=== PATIENT | male | born 1955 | race Caucasian/White ===

== ENCOUNTER 2017-12-24 22:21 | Inpatient (IN) | payer OTHER ==
--- NOTE | 2017-12-24 23:11 | PDOC ---
History of Present Illness - General Chief Complaint: Pain Stated Complaint: ABD PAIN Time Seen by Provider: 12/24/17 22:52 - History of Present Illness Initial Comments: 12/24/17 23:27 62 yo M with no significant pmh with abdominal pain. Patient reports acute onset of sharp, periumbilical, spasmodic pain beginning at 0300 PM this evening. Pain aggravated with touch. Also reports one episode of "explosive" BM at 0200 PM following ingestion of hamburger. Did not assess for BPR. One episode of bilious, non bloody emesis this evening. No identifiable trigger or alleviators.States that he has been unable to urinate beginning 200PM, desire 48 oz + fluid intake. Denies back pain or trauma, or perianal parasthesia. Denies F/C, CP, SOB, dysuria, hematuria, flank pain, testicular pain, lightheadedness, weakness, sensory changes. Denies h/o BPH. Recently started on Metformin x 1 month. Past History - Past Medical History Allergies/Adverse Reactions: Allergies Allergy/AdvReac Type Severity Reaction Status Date / Time Penicillins Allergy Itching Verified 12/25/17 04:35 Home Medications: Ambulatory Orders Omeprazole 20 mg PO DAILY 10/04/15 Losartan Potassium 25 mg PO DAILY 12/25/17 Metformin HCl 500 mg PO DAILY 12/25/17 Rosuvastatin [Crestor -] 5 mg PO DAILY 12/25/17 COPD: No Diabetes: Yes GI Disorders: Yes (GERD) HTN: Yes Hypercholesterolemia: Yes - Surgical History Abdominal Surgery: No Appendectomy: No Cardiac Surgery: No Cholecystectomy: No Lung Surgery: No Neurologic Surgery: No Orthopedic Surgery: No - Suicide/Smoking/Psychosocial Hx Smoking History: Never smoked Have you smoked in the past 12 months: No Information on smoking cessation initiated: No Hx Alcohol Use: No Drug/Substance Use Hx: No Substance Use Type: None Hx Substance Use Treatment: No Review of Systems - Review of Systems Comments:: 12/24/17 23:11 GENERAL/CONSTITUTIONAL: No fever or chills. No weakness. HEAD, EYES, EARS, NOSE AND THROAT: No change in vision. No ear pain or discharge. No sore throat. CARDIOVASCULAR: No chest pain or shortness of breath RESPIRATORY: No cough, wheezing, or hemoptysis. GASTROINTESTINAL: + Abdominal pain. No nausea, vomiting, diarrhea or constipation. GENITOURINARY: No dysuria, frequency, or change in urination. MUSCULOSKELETAL: No joint or muscle swelling or pain. No neck or back pain. SKIN: No rash NEUROLOGIC: No headache, vertigo, loss of consciousness, or change in strength/ sensation. ENDOCRINE: No increased thirst. No abnormal weight change HEMATOLOGIC/LYMPHATIC: No anemia, easy bleeding, or history of blood clots. ALLERGIC/IMMUNOLOGIC: No hives or skin allergy. *Physical Exam - Vital Signs Last Vital Signs Temp Pulse Resp BP Pulse Ox 97.8 F 85 20 170/82 98 12/24/17 22:36 12/24/17 22:36 12/24/17 22:36 12/24/17 22:36 12/24/17 22:36 - Physical Exam Comments: 12/24/17 23:11 GENERAL: Awake, alert, and fully oriented, in no acute distress HEAD: No signs of trauma, normocephalic, atraumatic EYES: PERRLA, EOMI, sclera anicteric, conjunctiva clear ENT:Dry mucous membranes. Hearing grossly normal, nares patent, oropharynx clear without exudates. NECK: Normal ROM, supple, no lymphadenopathy, JVD, or masses LUNGS: No distress, speaks full sentences, clear to auscultation bilaterally HEART: Regular rate and rhythm, normal S1 and S2, no murmurs, rubs or gallops, peripheral pulses normal and equal bilaterally. ABDOMEN: Soft, periumbiclical, suprapubic ttp. NDS, normoactive bowel sounds. No guarding, no rebound. No masses. Neg CVA ttp. EXTREMITIES : Normal inspection, Normal range of motion, no edema. No clubbing or cyanosis. NEUROLOGICAL: Cranial nerves II through XII grossly intact. Normal speech, normal gait, no focal sensorimotor deficits. SKIN: Warm, Dry, normal turgor, no rashes or lesions noted ED Treatment Course - LABORATORY CBC & Chemistry Diagram: 12/24/17 23:40 12/24/17 23:40 Medical Decision Making - Medical Decision Making 12/24/17 23:36 62 yo M with no significant pmh with acute onset of sharp, periumbilical, spasmodic pain beginning at 0300 PM this evening w/ episode of "explosive" BM and bilious, non bloody emesis following ingestion of hamburger. Did not assess for BPR. Reports urinary retention beginning 200PM. Denies F/C, CP, SOB, dysuria, hematuria, flank pain,back pain or trauma, or perianal parasthesia, testicular pain, lightheadedness, weakness, sensory changes. Denies h/o BPH. Physical exam with suprapubic ttp, and clinical signs of dehydration. Will fluid hydrate and assess for cystitis, and urinary obstruction. No evidence of cauda equina. Will also consider acute viral gastroenteritis vs. appendicicis. POC glu to r/o HHS. ED Course: 12/24/17 23:40 CBC, CMP, Lipase, UA NS 12/24/17 23:46 12/24/17 23:51 WBC: 12.2 12/25/17 00:47 CMP: Unremarkable Glu: 128 12/25/17 03:25 CT AP: per imaging combination saw operator Pt. with appendicitis 12/25/17 04:19 Levaquin 750 mg, Flagyl [address] Albright consulted and received signout on pt. Surgery tomorrow. 12/25/17 05:[address] Padilla. *DC/Admit/Observation/Transfer Diagnosis at time of Disposition: Appendicitis Qualifiers: Appendicitis type: acute appendicitis Acute appendicitis type: unspecified acute appendicitis type Qualified Code(s): K35.80 - Unspecified acute appendicitis - Discharge Dispostion Admit: Yes - Referrals Referrals: Maira De Leon MD [Primary Care Provider] - - Patient Instructions Additional Instructions: Please return to the emergency department with any new or worsening symptoms or concerns. Please follow up with your primary care physician within 72 hours. - Post Discharge Activity - Attestations Physician Attestion: 12/24/17 23:11 I attest to the information provided in this note.
[2017-12-24] MEDS ORDERED: SODIUM CHLORIDE 1,000 ML IV STA (23:27)
[2017-12-24 23:46] LABS: BASO % 0.6 % (0-2.0); EOS % 0.2 % (0-4.5); HEMATOCRIT 44.7 % (35.4-49); HEMOGLOBIN 15.4 GM/dL (11.7-16.9); LYMPH % 7.9 % (8-40); MCH 30.6 pg (25.7-33.7); MCHC 34.5 g/dl (32.0-35.9); MEAN CELL VOLUME 88.7 fl (80-96); MEAN PLT VOLUME 9.3 fl (7.5-11.1); NEUT % 85.3 % (42.8-82.8); PLATELET COUNT 221 K/MM3 (134-434); RBC 5.04 M/mm3 (4.00-5.60); RDW 13.7 % (11.9-15.9); WHITE BLOOD COUNT 12.2 K/mm3 (4.0-10.0)
--- NOTE | 2017-12-24 23:56 | PDOC ---
Attending Attestation - Resident Resident Name: Ayan Lai - ED Attending Attestation I have performed the following: I have examined & evaluated the patient, The case was reviewed & discussed with the resident, I agree w/resident's findings & plan, Exceptions are as noted
[2017-12-25] MEDS ORDERED: SODIUM CHLORIDE 1,000 ML IV STA (00:32)
[2017-12-25 00:35] LABS: ANION GAP 10 (8-16); BILIRUBIN,TOTAL 0.3 mg/dL (0.2-1.0); BLOOD UREA NITROGEN 16 mg/dL (7-18); CHLORIDE 107 mmol/L (98-107); CO2 25 mmol/L (21-32); CREATININE 1.1 mg/dL (0.7-1.3); GLUCOSE,RANDOM 128 mg/dL (74-106); POTASSIUM 4.4 mmol/L (3.5-5.1); SGOT/AST 22 U/L (15-37); SGPT/ALT 43 U/L (12-78); SODIUM 142 mmol/L (136-145); TOT PROT 7.3 g/dl (6.4-8.2)
[2017-12-25 00:36] LABS: ALK PHOS 84 U/L (45-117)
[2017-12-25] MEDS ORDERED: ACETAMINOPHEN 1000 MG/100 ML VIAL (NON FORMULARY) IVPB ONE ×3 (00:53→13:35)
[2017-12-25] MEDS ORDERED: ACETAMINOPHEN INJECTION 100 ML IVPB ONE (00:58)
[2017-12-25 04:06] LABS: URINE APPEARANCE CLEAR; URINE BILIRUBIN NEGATIVE (<2.0 mg/dL); URINE BLOOD NEGATIVE (NEGATIVE); URINE COLOR LTYELLOW; URINE GLUCOSE (UA) NEGATIVE (NEGATIVE); URINE KETONE NEGATIVE (NEGATIVE); URINE LEUK ESTERASE NEGATIVE (NEGATIVE); URINE NITRITE NEGATIVE (NEGATIVE); URINE PROTEIN NEGATIVE (NEGATIVE); URINE UROBILINOGEN NEGATIVE mg/dL (0.2-1.0)
[2017-12-25 05:19] LABS: INR 1.11 (0.82-1.09); PROTHROMBIN TIME (PATIENT) 12.5 SEC (9.98-11.88)
--- NOTE | 2017-12-25 07:12 | HP ---
CHIEF COMPLAINT: PCP: HISTORY OF PRESENT ILLNESS: 62M pmh HTN HLD DM2 p/w acute onset lower badominal pain started yesterday after lunch (ate hamburger), followed by explisve diarrhea episode. later in the day intermittent nausea and vomiting. no chest pain feveres, SOB. never had this before ER course was notable for: (1)abx, IVF (2) (3) PAST SURGICAL HISTORY: none Social History: Smoking:no Alcohol:no Drugs: no Family History:n/c Allergies Penicillins Allergy (Verified 12/25/17 04:35) Itching HOME MEDICATIONS: Home Medications Medication Instructions Recorded Omeprazole 20 mg PO DAILY 10/04/15 Losartan Potassium 25 mg PO DAILY 12/25/17 Metformin HCl 500 mg PO DAILY 12/25/17 Rosuvastatin [Crestor -] 5 mg PO DAILY 12/25/17 REVIEW OF SYSTEMS CONSTITUTIONAL: Absent: fever, chills, diaphoresis, generalized weakness, malaise, loss of appetite, weight change HEENT: Absent: rhinorrhea, nasal congestion, throat pain, throat swelling, difficulty swallowing, mouth swelling, ear pain, eye pain, visual changes CARDIOVASCULAR: Absent: chest pain, syncope, palpitations, irregular heart rate, lightheadedness , peripheral edema RESPIRATORY: Absent: cough, shortness of breath, dyspnea with exertion, orthopnea, wheezing, stridor, hemoptysis GASTROINTESTINAL: Absent: abdominal pain, abdominal distension, nausea, vomiting, diarrhea, constipation, melena, hematochezia GENITOURINARY: Absent: dysuria, frequency, urgency, hesitancy, hematuria, flank pain, genital pain MUSCULOSKELETAL: Absent: myalgia, arthralgia, joint swelling, back pain, neck pain SKIN: Absent: rash, itching, pallor HEMATOLOGIC/IMMUNOLOGIC: Absent: easy bleeding, easy bruising, lymphadenopathy, frequent infections ENDOCRINE: Absent: unexplained weight gain, unexplained weight loss, heat intolerance, cold intolerance NEUROLOGIC: Absent: headache, focal weakness or paresthesias, dizziness, unsteady gait, seizure, mental status changes, bladder or bowel incontinence PSYCHIATRIC: Absent: anxiety, depression, suicidal or homicidal ideation, hallucinations. PHYSICAL EXAMINATION Vital Signs - 24 hr 12/24/17 12/25/17 22:36 05:20 Temperature 97.8 F 97.8 F Pulse Rate 85 Pulse Rate [ 86 Right] Respiratory 20 18 Rate Blood Pressure 170/82 Blood Pressure 124/60 [Left Arm] O2 Sat by Pulse 98 95 Oximetry (%) GENERAL: Awake, alert, and fully oriented, in no acute distress. HEAD: Normal with no signs of trauma. EYES: Pupils equal, round and reactive to light, extraocular movements intact, sclera anicteric, conjunctiva clear. No lid lag. EARS, NOSE, THROAT: Ears normal, nares patent, oropharynx clear without exudates. Moist mucous membranes. NECK: Normal range of motion, supple without lymphadenopathy, JVD, or masses. LUNGS: Breath sounds equal, clear to auscultation bilaterally. No wheezes, and no crackles. No accessory muscle use. HEART: Regular rate and rhythm, normal S1 and S2 without murmur, rub or gallop. ABDOMEN: Soft, mild tenderness in suprapubic area MUSCULOSKELETAL: Normal range of motion at all joints. No bony deformities or tenderness. No CVA tenderness. UPPER EXTREMITIES: 2+ pulses, warm, well-perfused. No cyanosis. No clubbing. No peripheral edema. LOWER EXTREMITIES: 2+ pulses, warm, well-perfused. No calf tenderness. No peripheral edema. NEUROLOGICAL: Cranial nerves II-XII intact. Normal speech. Normal gait. PSYCHIATRIC: Cooperative. Good eye contact. Appropriate mood and affect. SKIN: Warm, dry, normal turgor, no rashes or lesions noted, normal capillary refill. Laboratory Results - last 24 hr 12/24/17 12/24/17 12/25/17 23:40 23:40 00:00 WBC 12.2 H RBC 5.04 Hgb 15.4 Hct 44.7 MCV 88.7 MCH 30.6 MCHC 34.5 RDW 13.7 Plt Count 221 MPV 9.3 Neutrophils % 85.3 H Lymphocytes % 7.9 L Monocytes % 6.0 Eosinophils % 0.2 Basophils % 0.6 PT with INR INR Sodium 142 Potassium 4.4 Chloride 107 Carbon Dioxide 25 Anion Gap 10 BUN 16 Creatinine 1.1 Creat Clearance w eGFR > 60 Random Glucose 128 H Calcium 9.0 Total Bilirubin 0.3 AST 22 ALT 43 Alkaline Phosphatase 84 Total Protein 7.3 Albumin 4.0 Lipase 48 L Urine Color Urine Appearance Urine pH Ur Specific [place] Urine Protein Urine Glucose (UA) Urine Ketones Urine Blood Urine Nitrite Urine Bilirubin Urine Urobilinogen Ur Leukocyte Esterase Blood Type Antibody Screen 12/25/17 12/25/17 12/25/17 02:50 04:50 04:50 WBC RBC Hgb Hct MCV MCH MCHC RDW Plt Count MPV Neutrophils % Lymphocytes % Monocytes % Eosinophils % Basophils % PT with INR 12.50 H INR 1.11 Sodium Potassium Chloride Carbon Dioxide Anion Gap BUN Creatinine Creat Clearance w eGFR Random Glucose Calcium Total Bilirubin AST ALT Alkaline Phosphatase Total Protein Albumin Lipase Urine Color Ltyellow Urine Appearance Clear Urine pH 5.0 Ur Specific [place] 1.044 H Urine Protein Negative Urine Glucose (UA) Negative Urine Ketones Negative Urine Blood Negative Urine Nitrite Negative Urine Bilirubin Negative Urine Urobilinogen Negative Ur Leukocyte Esterase Negative Blood Type O POSITIVE Antibody Screen Negative ASSESSMENT/PLAN: 62M with acute appendicitis found on CT imaging Surgery to eval in AM NPO IVF IV abx flagyl levaquin given at 4AM, if patient goes for surgery and nonperforated may not need further abx Visit type - Emergency Visit Emergency Visit: Yes ED Registration Date: 12/25/17 Care time: The patient presented to the Emergency Department on the above date and was hospitalized for further evaluation of their emergent condition. - New Patient This patient is new to me today: Yes Date on this admission: 12/25/17 - Critical Care Critical Care patient: No Hospitalist Screening - Colonoscopy Questionnaire Colonoscopy Questionnaire: Colonoscopy Questionnaire - Patient: 50 - 75 years old and never had a screening colonoscopy: Yes History of colon or rectal polyps, or CA: No History of IBD, Crohn's disease or UC: No History of abdominal radiation therapy as a child: No - Relative: 1 with colon or rectal CA, or polyps at age 60 or younger: Unknown Colon or rectal CA diagnosed at age 45 or younger: Unknown Multiple relatives with colon or rectal CA: Unknown - Outcome: Screening Result: Positive Screen
[2017-12-25] MEDS: SODIUM CHLORIDE 1,000 ML IV SCH ×2 (07:55→11:18)
[2017-12-25 09:20] VITALS: BMI 33.0
[2017-12-25] MEDS ORDERED: BUPIVACAINE HCL/PF 0.5% (5MG/ML) 10 ML VIAL ONE (11:07)
[2017-12-25] MEDS ORDERED: BENZOIN/ALOE VERA/STORAX/TOLU 58 ML BOTTLE ONE (11:07)
[2017-12-25] MEDS ORDERED: LIDOCAINE HCL/PF 2% SDV 5ML VIAL ONE (12:07)
[2017-12-25] MEDS ORDERED: PROPOFOL 20 ML ONE ×2 (12:08)
[2017-12-25] MEDS ORDERED: ROCURONIUM BROMIDE 50 MG/5 ML VIAL ONE (12:08)
[2017-12-25] MEDS ORDERED: SUCCINYLCHOLINE CHLORIDE 200 MG/10 ML VIAL ONE (12:08)
[2017-12-25] MEDS ORDERED: fentaNYL CITRATE 250 MCG/5 ML VIAL ONE (12:12)
[2017-12-25] MEDS ORDERED: KETOROLAC TROMETHAMINE 30 MG/1 ML VIAL ONE (12:38)
[2017-12-25] MEDS ORDERED: DEXAMETHASONE SOD PHOSPHATE 4 MG/1 ML VIAL ONE (12:38)
[2017-12-25] MEDS ORDERED: NEOSTIGMINE METHYLSULFATE 0.5 MG/ML - 10 ML MDV ONE (12:58)
[2017-12-25] MEDS ORDERED: GLYCOPYRROLATE 0.2 MG/1 ML VIAL ONE ×2 (12:58)
[2017-12-25] MEDS ORDERED: BUPIVACAINE HCL/PF 0.5% (5MG/ML) 10 ML VIAL IJ ONE ×2 (13:03)
[2017-12-25] MEDS ORDERED: PROMETHAZINE HCL 25 MG/1 ML VIAL IVPUSH PRN (13:15)
[2017-12-25] MEDS ORDERED: oxyCODONE HCL 5 MG TABLET PO PRN (13:15)
[2017-12-25] MEDS ORDERED: ONDANSETRON 4 MG/2 ML VIAL IVPUSH PRN (13:15)
[2017-12-25] MEDS ORDERED: IBUPROFEN 600 MG TABLET (FP) PO PRN ×2 (13:28→13:35)
[2017-12-25] MEDS ORDERED: ACETAMINOPHEN 325 MG TABLET (FP) PO PRN ×2 (13:29→13:35)
[2017-12-25] MEDS ORDERED: D5-1/2NS+20 MEQ KCL - 20 MEQ/1,000 ML INFUS.BAG IV SCH ×2 (13:30→13:35)
[2017-12-25] MEDS ORDERED: ONDANSETRON 4 MG/2 ML VIAL IVPB PRN ×2 (13:31→13:35)
--- NOTE | 2017-12-25 13:39 | CONSULT ---
Consult Consult Specialty:: general surgery Referred by:: boom cortez Reason for Consultation:: abdominal pain - History of Present Illness Chief Complaint: abdominal pain History of Present Illness: 62 yo male PMH HTN HLD DM type 2 presented with acute onset lower abdominal pain started yesterday after lunch (ate hamburger), followed by explosive diarrhea episode. later in the day intermittent nausea and vomiting. no chest pain feveres, SOB. never had this before. We were asked to assess after CT scan returned. - History Source History Provided By: Patient, Medical Record Limitations to Obtaining History: No Limitations - Past Medical History Cardio/Vascular: Yes: HTN Hepatobiliary: Yes: Cholelithiasis Endocrine: Yes: Diabetes Mellitus - Past Surgical History Past Surgical History: Yes: None - Alcohol/Substance Use Hx Alcohol Use: No - Smoking History Smoking history: Never smoked Have you smoked in the past 12 months: No Home Medications - Allergies Allergies/Adverse Reactions: Allergies Allergy/AdvReac Type Severity Reaction Status Date / Time Penicillins Allergy Itching Verified 12/25/17 04:35 - Home Medications Home Medications: Ambulatory Orders Omeprazole 20 mg PO DAILY 10/04/15 Aspirin [ASA -] 81 mg PO Q2D 12/25/17 Losartan Potassium 50 mg PO DAILY 12/25/17 Metformin HCl 500 mg PO DAILY 12/25/17 Rosuvastatin [Crestor -] 20 mg PO DAILY 12/25/17 Review of Systems - Review of Systems Constitutional: denies: Chills, Fever Eyes: denies: Blurred Vision, Recent Change in Vision HENT: denies: Difficult Swallowing, Throat Pain Cardiovascular: denies: Chest Pain, Palpitations Respiratory: denies: Cough Gastrointestinal: reports: Abdominal Pain. denies: Constipation, Diarrhea Genitourinary: denies: Discharge, Dysuria Musculoskeletal: denies: Muscle Pain, Muscle Cramps, Muscle Weakness Integumentary: denies: Eczema, Erythema Neurological: denies: Confusion, Dizziness Endocrine: denies: Unexplained Weight Gain, Unexplained Weight Loss Hematology/Lymphatic: denies: Easily Bruised, Excessive Bleeding Psychiatric: denies: Anxiety, Depression Physical Exam Vital Signs: Vital Signs Temperature 98.1 F 12/25/17 07:52 Pulse Rate 74 12/25/17 07:52 Respiratory Rate 18 12/25/17 07:52 Blood Pressure 130/78 12/25/17 07:52 O2 Sat by Pulse Oximetry (%) 98 12/25/17 07:52 Vital Signs Period Temp Pulse Resp BP Sys/Carlos Pulse Ox Last 24 Hr 97.8 F-98.1 F 74-86 18-20 124-170/60-82 95-98 Constitutional: Yes: No Distress, Calm, Obese Eyes: Yes: Conjunctiva Clear, EOM Intact HENT: Yes: Atraumatic, Normocephalic Neck: Yes: Supple, Trachea Midline Cardiovascular: Yes: Regular Rate and Rhythm, S1, S2. No: Murmur Respiratory: Yes: Regular, CTA Bilaterally Gastrointestinal: Yes: Normal Bowel Sounds, Soft, Abdomen, Obese, Distention, Tenderness (lower quadrant B/L R>>L) ...Rectal Exam: Yes: Deferred Renal/: Yes: CVA Tenderness - Left, CVA Tenderness - Right Musculoskeletal: No: Muscle Pain, Muscle Weakness Extremities: No: Cool, Cyanosis Neurological: Yes: Alert, Oriented Psychiatric: Yes: Alert, Oriented Labs: CBC, BMP 12/24/17 23:40 12/24/17 23:40 Imaging - Results Cat Scan: Report Reviewed, Image Reviewed (1.6cm appendix with periappendiceal inflammatory changes) Problem List - Problems (1) Appendicitis Assessment/Plan: 62yo male MMP with 1 day of RLQ abdominal pain, WBC 12.[address] scan with acute supperative appendicitis NPO and IVF hydration empiric IV antibiotics OR of appendectomy - Discussed with patient risks, benefits and alternatives of laparoscopic possible open appendectomy, including but not limited to bleeding, infection, injury to adjacent structures, leak or injury, intraabdominal abscess , need for further procedures, ; alternatives include antibiotics, delayed or no surgery - risks of this include failure of nonoperative therapy, perforation, sepsis, recurrence, . Patient desires to proceed with operation - will take to OR for above. Informed consent signed for same. Code(s): K37 - UNSPECIFIED APPENDICITIS Qualifiers: Appendicitis type: acute appendicitis Acute appendicitis type: with localized peritonitis Qualified Code(s): K35.3 - Acute appendicitis with localized peritonitis (2) Diabetes Code(s): E11.9 - TYPE 2 DIABETES MELLITUS WITHOUT COMPLICATIONS Qualifiers: Diabetes mellitus type: type 2 Diabetes mellitus complication status: without complication (3) HTN (hypertension) Code(s): I10 - ESSENTIAL (PRIMARY) HYPERTENSION Qualifiers: Hypertension type: essential hypertension Qualified Code(s): I10 - Essential (primary) hypertension (4) Obesity (BMI 30.0-34.9) Code(s): E66.9 - OBESITY, UNSPECIFIED (5) HLD (hyperlipidemia) Code(s): E78.5 - HYPERLIPIDEMIA, UNSPECIFIED Qualifiers: Hyperlipidemia type: pure hypercholesterolemia Qualified Code(s): E78.00 - Pure hypercholesterolemia, unspecified; E78.0 - Pure hypercholesterolemia
--- NOTE | 2017-12-25 13:54 | CON.ID ---
Consult Consult Specialty:: infectious diseases Reason for Consultation:: appendicitis - History of Present Illness Chief Complaint: abd pain History of Present Illness: 62 yo male PMH HTN HLD DM type 2 presented with acute onset lower abdominal pain started yesterday after lunch (ate hamburger), followed by explosive diarrhea episode. later in the day intermittent nausea and vomiting. no chest pain fevers, SOB. never had this before. patient was worked up and found to have ac appendicitis. patient was seen by surgery and taken to the operating room patient currently in pacu post with his who works in this hospital doing well patient is allergic to pcn - History Source History Provided By: Patient, Family Member Limitations to Obtaining History: Clinical Condition - Past Medical History Cardio/Vascular: Yes: HTN Hepatobiliary: Yes: Cholelithiasis Endocrine: Yes: Diabetes Mellitus - Past Surgical History Past Surgical History: Yes: None - Alcohol/Substance Use Hx Alcohol Use: No - Smoking History Smoking history: Never smoked Have you smoked in the past 12 months: No Home Medications - Allergies Allergies/Adverse Reactions: Allergies Allergy/AdvReac Type Severity Reaction Status Date / Time Penicillins Allergy Itching Verified 12/25/17 04:35 - Home Medications Home Medications: Ambulatory Orders Omeprazole 20 mg PO DAILY 10/04/15 Aspirin [ASA -] 81 mg PO Q2D 12/25/17 Losartan Potassium 50 mg PO DAILY 12/25/17 Metformin HCl 500 mg PO DAILY 12/25/17 Rosuvastatin [Crestor -] 20 mg PO DAILY 12/25/17 Ibuprofen [Motrin -] 600 mg PO Q6H PRN tablet 12/26/17 Ibuprofen [Motrin -] 600 mg PO Q6H PRN tablet 12/26/17 Sulfamethoxazole/Trimethoprim [Bactrim Ds Tablet] 1 each PO BID #7 tablet Review of Systems - Review of Systems Constitutional: reports: No Symptoms Eyes: reports: No Symptoms HENT: reports: No Symptoms Neck: reports: No Symptoms Cardiovascular: reports: No Symptoms Respiratory: reports: No Symptoms Gastrointestinal: reports: Abdominal Pain, Nausea Musculoskeletal: reports: No Symptoms Integumentary: reports: No Symptoms Neurological: reports: No Symptoms Endocrine: reports: No Symptoms Hematology/Lymphatic: reports: No Symptoms Psychiatric: reports: No Symptoms Physical Exam Vital Signs: Vital Signs Temperature 98.1 F 12/25/17 07:52 Pulse Rate 74 12/25/17 07:52 Respiratory Rate 18 12/25/17 07:52 Blood Pressure 130/78 12/25/17 07:52 O2 Sat by Pulse Oximetry (%) 98 12/25/17 07:52 Constitutional: Yes: Well Nourished, No Distress, Calm Eyes: Yes: Conjunctiva Clear Neck: Yes: Supple, Trachea Midline Cardiovascular: Yes: Regular Rate and Rhythm Respiratory: Yes: Regular, CTA Bilaterally Gastrointestinal: Yes: Soft, Hypoactive Bowel Sounds Musculoskeletal: Yes: WNL Extremities: Yes: WNL Wound/Incision: Yes: Dressing Dry and Intact Neurological: Yes: Alert, Oriented Psychiatric: Yes: Alert, Oriented Labs: CBC, BMP 12/24/17 23:40 12/24/17 23:40 Imaging - Results Cat Scan: Report Reviewed, Image Reviewed Assessment/Plan Problem List - Problems (1) Appendicitis Code(s): K37 - UNSPECIFIED APPENDICITIS Qualifiers: Appendicitis type: acute appendicitis Acute appendicitis type: with localized peritonitis Qualified Code(s): K35.3 - Acute appendicitis with localized peritonitis (2) Diabetes Code(s): E11.9 - TYPE 2 DIABETES MELLITUS WITHOUT COMPLICATIONS Qualifiers: Diabetes mellitus type: type 2 Diabetes mellitus complication status: without complication (3) HTN (hypertension) Code(s): I10 - ESSENTIAL (PRIMARY) HYPERTENSION Qualifiers: Hypertension type: essential hypertension Qualified Code(s): I10 - Essential (primary) hypertension (4) Obesity (BMI 30.0-34.9) Code(s): E66.9 - OBESITY, UNSPECIFIED (5) HLD (hyperlipidemia) Code(s): E78.5 - HYPERLIPIDEMIA, UNSPECIFIED Qualifiers: Hyperlipidemia type: pure hypercholesterolemia Qualified Code(s): E78.00 - Pure hypercholesterolemia, unspecified; E78.0 - Pure hypercholesterolemia plan patient allergic to pcn will start patient on ertapenam will monitor wbc if patient remains stable will consider deescalating
--- NOTE | 2017-12-25 13:59 | OP ---
Operative Note - Note: Operative Date: 12/25/17 Pre-Operative Diagnosis: acute supperative appendicitis Operation: laparoscopic appendectomy Findings: inflames and supperative appendix with purulent peel. Post-Operative Diagnosis: Same as Pre-op Surgeon: Bryan Albright Anesthesiologist/BATCH TANK CONTROLLER: Orion Pascual Anesthesia: General, Local (10ml of 0.5% marcaine) Specimens Removed: appendix Estimated Blood Loss (mls): 15 Drains & Tubes with Location: none Drains, Volume Out (mls): 100 (rojas) Fluid Volume Replaced (mls): 1,000 Operative Report Dictated: Yes
[2017-12-25] MEDS: ERTAPENEM SODIUM 1 GM in SODIUM CHLORIDE 100 ML IVPB SCH (14:30)
[2017-12-25] MEDS ORDERED: ROSUVASTATIN CA 5 MG TABLET (FP) PO SCH ×2 (22:00)
[2017-12-25] MEDS: INSULIN SLIDING SCALE (NOVOLOG) 1 VIAL SQ SCH (22:35)
[2017-12-26] MEDS: INSULIN SLIDING SCALE (NOVOLOG) 1 VIAL SQ SCH ×2 (06:20→15:28)
[2017-12-26 07:54] LABS: BASO % 0.2 % (0-2.0); EOS % 0.1 % (0-4.5); HEMATOCRIT 39.2 % (35.4-49); HEMOGLOBIN 13.6 GM/dL (11.7-16.9); LYMPH % 17.3 % (8-40); MCH 31.2 pg (25.7-33.7); MCHC 34.8 g/dl (32.0-35.9); MEAN CELL VOLUME 89.6 fl (80-96); MEAN PLT VOLUME 9.8 fl (7.5-11.1); MONO % 8.9 % (3.8-10.2); NEUT % 73.5 % (42.8-82.8); PLATELET COUNT 208 K/MM3 (134-434); RBC 4.37 M/mm3 (4.00-5.60); RDW 13.9 % (11.9-15.9); WHITE BLOOD COUNT 8.6 K/mm3 (4.0-10.0)
[2017-12-26] MEDS ORDERED: PT OWN MED DRAWER 7, Y5N ONE (09:29)
--- NOTE | 2017-12-26 09:38 | PN ---
Physical Exam: SUBJECTIVE: Patient seen and examined OBJECTIVE: Vital Signs Period Temp Pulse Resp BP Sys/Carlos Pulse Ox Last 24 Hr 97.3 F-98.9 F 65-96 14-20 117-140/52-86 93-98 GENERAL: The patient is awake, alert, and fully oriented, in no acute distress. HEAD: Normal with no signs of trauma. EYES: PERRL, extraocular movements intact, sclera anicteric, conjunctiva clear. No ptosis. ENT: Ears normal, nares patent, oropharynx clear without exudates, moist mucous membranes. NECK: Trachea midline, full range of motion, supple. LUNGS: Breath sounds equal, clear to auscultation bilaterally, no wheezes, no crackles, no accessory muscle use. HEART: Regular rate and rhythm, S1, S2 without murmur, rub or gallop. ABDOMEN: Soft, nontender, nondistended, normoactive bowel sounds, no guarding, no rebound, no hepatosplenomegaly, no masses. EXTREMITIES: 2+ pulses, warm, well-perfused, no edema. NEUROLOGICAL: Cranial nerves II through XII grossly intact. Normal speech, gait not observed. PSYCH: Normal mood, normal affect. SKIN: Warm, dry, normal turgor, no rashes or lesions noted Laboratory Results - last 24 hr 12/25/17 12/25/17 12/26/17 11:13 22:28 06:00 WBC 8.6 RBC 4.37 Hgb 13.6 D Hct 39.2 MCV 89.6 MCH 31.2 MCHC 34.8 RDW 13.9 Plt Count 208 MPV 9.8 Neutrophils % 73.5 Lymphocytes % 17.3 D Monocytes % 8.9 Eosinophils % 0.1 Basophils % 0.2 POC Glucometer 100 124 12/26/17 06:19 WBC RBC Hgb Hct MCV MCH MCHC RDW Plt Count MPV Neutrophils % Lymphocytes % Monocytes % Eosinophils % Basophils % POC Glucometer 113 Active Medications Generic Name Dose Route Start Last Admin Trade Name Freq PRN Reason Stop Dose Admin Acetaminophen 650 mg 12/25/17 13:35 Tylenol - PO Q6H PRN PAIN LEVEL 1-5 Aspirin 81 mg 12/26/17 10:00 Asa - PO Q2D OKSANA Potassium Chloride/Dextrose/Sod Cl 20 meq in 1,000 mls @ 100 mls/hr 12/25/17 13:35 12/25/17 14:15 D5-1/2ns+20 Meq Kcl - IV 0 mls ASDIR OKSANA Administration Metronidazole 500 mg in 100 mls @ 100 mls/hr 12/25/17 15:00 12/26/17 03:37 Flagyl 500mg Premixed Ivpb - IVPB 100 mls/hr Q6H-IV OKSANA Administration Ertapenem 1 gm/ Sodium 100 mls @ 50 mls/hr 12/25/17 14:00 12/25/17 14:30 Chloride IVPB 50 mls DAILY OKSANA Administration Protocol Ibuprofen 600 mg 12/25/17 13:35 Motrin - PO Q6H PRN PAIN LEVEL 1-5 Insulin Aspart 1 vial 12/25/17 22:00 12/26/17 06:20 Novolog Vial Sliding Scale - SQ Not Given ACHS OKSANA Protocol Losartan Potassium 50 mg 12/26/17 10:00 Cozaar - PO DAILY OKSANA Ondansetron HCl 4 mg 12/25/17 13:35 Zofran Injection IVPB Q6H PRN NAUSEA Pantoprazole Sodium 40 mg 12/26/17 10:00 Protonix - PO DAILY OKSANA Rosuvastatin Calcium 5 mg 12/25/17 22:00 12/25/17 22:31 Crestor - PO 5 mg HS OKSANA Administration ASSESSMENT/PLAN:
[2017-12-26] MEDS ORDERED: ASPIRIN 81 MG CHEWABLE TABLETS PO SCH (10:00)
[2017-12-26] MEDS ORDERED: LOSARTAN POTASSIUM 50 MG TABLET (FP) PO SCH (10:00)
[2017-12-26] MEDS ORDERED: PANTOPRAZOLE 40 MG TABLET (FP) PO SCH (10:00)
[2017-12-26] MEDS: ERTAPENEM SODIUM 1 GM in SODIUM CHLORIDE 100 ML IVPB SCH (11:12)
--- NOTE | 2017-12-26 12:39 | PN ---
Progress Note, Physician History of Present Illness: patient doing well no complaints tolerated food wbc normal - Current Medication List Current Medications: Active Medications Acetaminophen (Tylenol -) 650 mg PO Q6H PRN PRN Reason: PAIN LEVEL 1-5 Aspirin (Asa -) 81 mg PO Q2D [facility] Last Admin: 12/26/17 10:03 Dose: 81 mg Metronidazole (Flagyl 500mg Premixed Ivpb -) 500 mg in 100 mls @ 100 mls/hr IVPB Q6H-IV [facility] Last Admin: 12/26/17 10:03 Dose: 100 mls/hr Ertapenem 1 gm/ Sodium (Chloride) 100 mls @ 50 mls/hr IVPB DAILY [facility] PRN Reason: Protocol Last Admin: 12/26/17 11:12 Dose: 50 mls/hr Ibuprofen (Motrin -) 600 mg PO Q6H PRN PRN Reason: PAIN LEVEL 1-5 Insulin Aspart (Novolog Vial Sliding Scale -) 1 vial SQ ACHS [facility] PRN Reason: Protocol Last Admin: 12/26/17 06:20 Dose: Not Given Losartan Potassium (Cozaar -) 50 mg PO DAILY [facility] Last Admin: 12/26/17 10:03 Dose: 50 mg Ondansetron HCl (Zofran Injection) 4 mg IVPB Q6H PRN PRN Reason: NAUSEA Pantoprazole Sodium (Protonix -) 40 mg PO DAILY [facility] Last Admin: 12/26/17 10:03 Dose: 40 mg Rosuvastatin Calcium (Crestor -) 5 mg PO HS [facility] Last Admin: 12/25/17 22:31 Dose: 5 mg - Objective Vital Signs: Vital Signs Temperature 97.9 F 12/26/17 06:25 Pulse Rate 65 12/26/17 06:25 Respiratory Rate 20 12/26/17 06:25 Blood Pressure 117/59 12/26/17 06:25 O2 Sat by Pulse Oximetry (%) 93 L 12/25/17 21:00 Constitutional: Yes: No Distress, Calm Cardiovascular: Yes: Regular Rate and Rhythm Respiratory: Yes: Regular, CTA Bilaterally Gastrointestinal: Yes: Normal Bowel Sounds, Soft Musculoskeletal: Yes: WNL Extremities: Yes: WNL Wound/Incision: Yes: Clean/Dry, Dressing Dry and Intact Neurological: Yes: Alert, Oriented Psychiatric: Yes: Alert, Oriented Labs: CBC, BMP 12/26/17 06:00 12/24/17 23:40 INR, PTT INR 1.11 (0.82-1.09) 12/25/17 04:50 Assessment/Plan Problem List - Problems (1) Appendicitis Code(s): K37 - UNSPECIFIED APPENDICITIS Qualifiers: Appendicitis type: acute appendicitis Acute appendicitis type: with localized peritonitis Qualified Code(s): K35.3 - Acute appendicitis with localized peritonitis (2) Diabetes Code(s): E11.9 - TYPE 2 DIABETES MELLITUS WITHOUT COMPLICATIONS Qualifiers: Diabetes mellitus type: type 2 Diabetes mellitus complication status: without complication (3) HTN (hypertension) Code(s): I10 - ESSENTIAL (PRIMARY) HYPERTENSION Qualifiers: Hypertension type: essential hypertension Qualified Code(s): I10 - Essential (primary) hypertension (4) Obesity (BMI 30.0-34.9) Code(s): E66.9 - OBESITY, UNSPECIFIED (5) HLD (hyperlipidemia) Code(s): E78.5 - HYPERLIPIDEMIA, UNSPECIFIED Qualifiers: Hyperlipidemia type: pure hypercholesterolemia Qualified Code(s): E78.00 - Pure hypercholesterolemia, unspecified; E78.0 - Pure hypercholesterolemia plan once patient gets todays iv dose can be switched to oral abx we should give him bactrim ds bid for another 3 days from tomorrow
--- NOTE | 2017-12-26 13:17 | PN ---
Progress Note, Physician Chief Complaint: abdominal pain History of Present Illness: 62 yo male PMH HTN HLD DM type 2 presented with acute onset lower abdominal pain started yesterday after lunch (ate hamburger), followed by explosive diarrhea episode. s/p appenedctomy no acute events overnight. ambulating, passing stool and flatus - Current Medication List Current Medications: Active Medications Acetaminophen (Tylenol -) 650 mg PO Q6H PRN PRN Reason: PAIN LEVEL 1-5 Aspirin (Asa -) 81 mg PO Q2D [facility] Last Admin: 12/26/17 10:03 Dose: 81 mg Metronidazole (Flagyl 500mg Premixed Ivpb -) 500 mg in 100 mls @ 100 mls/hr IVPB Q6H-IV [facility] Last Admin: 12/26/17 10:03 Dose: 100 mls/hr Ertapenem 1 gm/ Sodium (Chloride) 100 mls @ 50 mls/hr IVPB DAILY OKSANA PRN Reason: Protocol Last Admin: 12/26/17 11:12 Dose: 50 mls/hr Ibuprofen (Motrin -) 600 mg PO Q6H PRN PRN Reason: PAIN LEVEL 1-5 Insulin Aspart (Novolog Vial Sliding Scale -) 1 vial SQ ACHS OKSANA PRN Reason: Protocol Last Admin: 12/26/17 06:20 Dose: Not Given Losartan Potassium (Cozaar -) 50 mg PO DAILY [facility] Last Admin: 12/26/17 10:03 Dose: 50 mg Ondansetron HCl (Zofran Injection) 4 mg IVPB Q6H PRN PRN Reason: NAUSEA Pantoprazole Sodium (Protonix -) 40 mg PO DAILY [facility] Last Admin: 12/26/17 10:03 Dose: 40 mg Rosuvastatin Calcium (Crestor -) 5 mg PO HS [facility] Last Admin: 12/25/17 22:31 Dose: 5 mg - Objective Vital Signs: Vital Signs Temperature 97.9 F 12/26/17 06:25 Pulse Rate 65 12/26/17 06:25 Respiratory Rate 20 12/26/17 06:25 Blood Pressure 117/59 12/26/17 06:25 O2 Sat by Pulse Oximetry (%) 93 L 12/25/17 21:00 Constitutional: Yes: Well Nourished, No Distress, Calm Eyes: Yes: Conjunctiva Clear, EOM Intact HENT: Yes: Atraumatic, Normocephalic Neck: Yes: Supple, Trachea Midline Labs: CBC, BMP 12/26/17 06:00 12/24/17 23:40 INR, PTT INR 1.11 (0.82-1.09) 12/25/17 04:50 Problem List - Problems (1) Appendicitis Assessment/Plan: 62yo male MMP with 1 day of RLQ abdominal pain, WBC 12.[address] scan with acute supperative appendicitis. POD#1 s/p lap appendectomy Diet as tolerated OOB and ambulated Discharge is at the discretion of the primary team Agree with ID Code(s): K37 - UNSPECIFIED APPENDICITIS Qualifiers: Appendicitis type: acute appendicitis Acute appendicitis type: with localized peritonitis Qualified Code(s): K35.3 - Acute appendicitis with localized peritonitis (2) Diabetes Code(s): E11.9 - TYPE 2 DIABETES MELLITUS WITHOUT COMPLICATIONS Qualifiers: Diabetes mellitus type: type 2 Diabetes mellitus complication status: without complication (3) HTN (hypertension) Code(s): I10 - ESSENTIAL (PRIMARY) HYPERTENSION Qualifiers: Hypertension type: essential hypertension Qualified Code(s): I10 - Essential (primary) hypertension (4) Obesity (BMI 30.0-34.9) Code(s): E66.9 - OBESITY, UNSPECIFIED (5) HLD (hyperlipidemia) Code(s): E78.5 - HYPERLIPIDEMIA, UNSPECIFIED Qualifiers: Hyperlipidemia type: pure hypercholesterolemia Qualified Code(s): E78.00 - Pure hypercholesterolemia, unspecified; E78.0 - Pure hypercholesterolemia
[2017-12-26 14:25] VITALS: BP 150/77; PULSE 77; TEMP 97.9
--- NOTE | 2017-12-26 15:03 | DS ---
Physical Exam: SUBJECTIVE: Patient seen and examined OBJECTIVE: Vital Signs Period Temp Pulse Resp BP Sys/Carlos Pulse Ox Last 24 Hr 97.3 F-98.9 F 65-83 18-20 117-150/52-77 93-98 PHYSICAL EXAM GENERAL: The patient is awake, alert, and fully oriented, in no acute distress. HEAD: Normal with no signs of trauma. EYES: PERRL, extraocular movements intact, sclera anicteric, conjunctiva clear. ENT: Ears normal, nares patent, oropharynx clear without exudates, moist mucous membranes. NECK: Trachea midline, full range of motion, supple. LUNGS: Breath sounds equal, clear to auscultation bilaterally, no wheezes, no crackles, no accessory muscle use. HEART: Regular rate and rhythm, S1, S2 without murmur, rub or gallop. ABDOMEN: Soft, nontender, nondistended, normoactive bowel sounds, no guarding, no rebound, no hepatosplenomegaly, no masses. EXTREMITIES: 2+ pulses, warm, well-perfused, no edema. NEUROLOGICAL: Cranial nerves II through XII grossly intact. Normal speech, gait not observed. PSYCH: Normal mood, normal affect. SKIN: Warm, dry, normal turgor, no rashes or lesions noted. LABS Laboratory Results - last 24 hr 12/25/17 12/26/17 12/26/17 22:28 06:00 06:19 WBC 8.6 RBC 4.37 Hgb 13.6 D Hct 39.2 MCV 89.6 MCH 31.2 MCHC 34.8 RDW 13.9 Plt Count 208 MPV 9.8 Neutrophils % 73.5 Lymphocytes % 17.3 D Monocytes % 8.9 Eosinophils % 0.1 Basophils % 0.2 POC Glucometer 124 113 12/26/17 11:58 WBC RBC Hgb Hct MCV MCH MCHC RDW Plt Count MPV Neutrophils % Lymphocytes % Monocytes % Eosinophils % Basophils % POC Glucometer 88 HOSPITAL COURSE: Date of Admission:12/25/17 Date of Discharge: 12/26/17 Discharge Summary Reason For Visit: APPENDICITIS Current Active Problems Appendicitis (Acute) Diabetes (Acute) HLD (hyperlipidemia) (Acute) HTN (hypertension) (Acute) Obesity (BMI 30.0-34.9) (Acute) Condition: Improved - Instructions Diet, Activity, Other Instructions: Postoperative instructions: You had a laparoscopic appendectomy on 12/25/[address] Bryan Albright of [facility]. Activity: Resume your usual activities gradually, but no heavy exertion or lifting more than 10-15 pounds for 1 month. Remove dressings 48 hours after surgery; sticky tapes underneath will fall off by themselves. You may shower daily starting then, just pat the incision areas dry. Eat lightly at first, but advance to your usual diet as tolerated. Pain: For pain, you may use and alternate Tylenol (acetaminophen) and/or ibuprofen every 6 hours each as needed; this means that you can take one OR the other at 3-hour intervals. If you are prescribed a Tylenol/narcotic combination for severe pain, use it instead of plain Tylenol as needed and switch back when your pain starts decreasing. Do not take more than 4000mg of acetaminophen in a day. Take medications as prescribed or indicated on the labeling. Follow-up: Call Dr. Albright' office at [phone] to make your postop appointment (Wednesday ~2 weeks after surgery). Clinic is held in the [facility] on the first floor of [facility]. Call the office if you have: * increasing pain not responsive to pain medication * fever of 101F or higher * vomiting * unusual or increasing bleeding or drainage from wounds * increasing redness or swelling at wound sites * inability to urinate Also, see your primary medical doctor within 1-2 weeks. Referrals: Maira De Leon MD [Primary Care Provider] - Disposition: HOME - Home Medications Comprehensive Discharge Medication List: Ambulatory Orders Omeprazole 20 mg PO DAILY 10/04/15 Aspirin [ASA -] 81 mg PO Q2D 12/25/17 Losartan Potassium 50 mg PO DAILY 12/25/17 Metformin HCl 500 mg PO DAILY 12/25/17 Rosuvastatin [Crestor -] 20 mg PO DAILY 12/25/17 Sulfamethoxazole/Trimethoprim [Bactrim Ds Tablet] 1 each PO BID #7 tablet
[2017-12-26] MEDS ORDERED: SULFAMETHOXAZOLE/TRIMETHOPRIM 800MG/160MG D.S. TABLET PO ONE (15:08)
--- NOTE | 2017-12-26 21:42 | EKG ---
Test Reason : Blood Pressure : / mmHG Vent. Rate : 083 BPM Atrial Rate : 083 BPM P-R Int : 186 ms QRS Dur : 096 ms QT Int : 410 ms P-R-T Axes : 061 009 017 degrees QTc Int : 481 ms SINUS RHYTHM WITH PREMATURE ATRIAL COMPLEXES WITH ABERRANT CONDUCTION POSSIBLE INFERIOR INFARCT , AGE UNDETERMINED ABNORMAL ECG NO PREVIOUS ECGS AVAILABLE Confirmed by SANDRA GAUTHIER MD ([id number]) on 12/26/2017 9:42:43 PM Referred By: Confirmed By:SANDRA GAUTHIER MD
--- NOTE | 2017-12-27 22:29 | OP ---
DATE OF OPERATION: 12/25/2017 PREOPERATIVE DIAGNOSIS: Acute suppurative appendicitis. POSTOPERATIVE DIAGNOSIS: Acute suppurative appendicitis. PROCEDURE: Laparoscopic appendectomy. ATTENDING SURGEON: Bryan Albright MD STREETCAR REPAIRER: None. ANESTHESIA: Orion Pascual MD ANESTHESIA TYPE: General with local. Local consisted of 0.5% Marcaine, a total of 10 mL given at the port sites. ESTIMATED BLOOD LOSS: 15 mL INTRAVENOUS FLUID: 1 L DRAINS: 100 mL of urine, the Suarez which was removed postoperatively. INDICATION: Patient is a 62-year-old male presenting with abdominal pain for a period of 1 day, thought it was related to food poisoning after eating a hamburger. Pain was focal to the right lower quadrant. CT confirmed the presence of an inflamed appendix, 1.6 mm. White count was elevated to 12. His was counseled regarding the need for a laparoscopic appendectomy. He signed informed consent and was taken for the procedure after he was explained the risks, benefits, and alternatives and signed informed consent which was placed on the chart. He had the opportunity to ask questions and had them answered to his satisfaction. DESCRIPTION OF PROCEDURE: Patient was brought to the operating room, placed in supine position on the operating table with the left arm tucked and the right arm extended at 90 degrees perpendicular to the body's axis. The anterior abdominal wall was shaved, prepped, and draped in standard surgical fashion. SCDs were placed on bilateral lower extremities, and they were placed to a Venodyne machine. Patient was induced with general anesthesia, endotracheally intubated. At which point, we proceeded then with a sterile prep and drape. Formal timeout was completed identifying the operative site. With all parties in agreement, we proceeded first with a supraumbilical Renetta entry into the abdomen for a 10-mm port. It was made with a 15-blade scalpel, deepened and widened through the subcutaneous tissue to the anterior fascia of the rectus muscles. The fascia was retracted in standard fashion, and a 12-mm port was inserted into umbilicus in the supraumbilical position. A pneumoperitoneum was established. At which point, we began to inspect the right lower quadrant. With the patient then placed into a steep Trendelenburg, the bowel was retracted away from the site, revealing an inflamed appendix which had a suppurative purulent peel. It was retracted mid body after 5-mm ports were placed at the supraumbilical position as well as the left lower quadrant. Once grasped with a grasper, the base of the appendix was identified at the cecum. A plane was developed between the mesoappendix and the base of the appendix. Once a clear plane could be established and adhesions were lysed from the sidewall, a blue Endo ALFRED stapler 60 mm was inserted from the umbilical port with the camera re-sited to the left lower quadrant and used to transect the base of the appendix. Once clear, the mesoappendix was identified and then stapled with a white load and the same Endo ALFRED size 60 mm. Once completely transected, the appendix then was retrieved from the abdomen using an Endo Catch bag from the umbilical port. The pneumoperitoneum was re-established, the patient was leveled, and the area just adjacent to the appendix dissection was irrigated with sterile irrigation. Fluid was then removed, suctioned from the abdomen and the pelvis. When it was clear that there was obvious hemostasis, the remainder of the ports was removed under direct visualization. The counts were correct. The patient had the trocars removed and pneumoperitoneum relieved. The patient was cleaned at the wound sites. The sites were irrigated, and then, the 5-mm ports were closed with 4-0 Vicryl in interrupted fashion at the skin. The midline fascia was then approximated with a 0 Vicryl in a figure-of-8 to ablate the Renetta port, and then at the skin, a 4-0 Vicryl was used to close the skin in subcuticular fashion. Skin was cleaned. Sterile dressings were placed. The patient was returned to Recovery in stable condition, was extubated in the operating room, and tolerated the procedure well. MD DUSTY Alvarenga/[id number]
--- NOTE | 2017-12-29 08:46 | PATH ---
Surgical Pathology Report Patient Name: DEE MACHADO Med. Rec. #: [id number] /Age/Gender: 1955 (Age: 62) / M Account: [id number] Location: [facility] MED/SURG Taken: 12/25/2017 Received: 12/27/2017 Reported: 12/29/2017 Physicians: Bryan Albright M.D. Specimen(s) Received APPENDIX Clinical History Acute appendicitis Final Diagnosis APPENDIX, APPENDECTOMY: ACUTE APPENDICITIS AND PERIAPPENDICITIS. Electronically Signed Clement Alvarado M.D. Gross Description Received in formalin, labeled "appendix," is a 7.5 cm. in length vermiform appendix with a stapled margin of resection and minimal attached fat. The serosa is richey-gutierrez with attached exudate. Sectioning reveals a focally dilated lumen. The wall of the appendix averages 0.1 cm. in thickness. Aircraft Sales Representative sections are submitted in one cassette. /12/27/2017 saudi/12/27/2017
== END 2017-12-26 15:56 | disposition home or self-care (01) | DRG 343 ==
LOC: JER 22:21 → JERBED 12-25 05:16 → J7W 12-25 10:00
PROVIDERS: ADMIT Internal Medicine; ATTEND Nurse Practitioner Family
PROC: 0DTJ4ZZ Resection of Appendix, Percutaneous Endoscopic Approach (ICD-10-PCS; principal; 2017-12-25 11:01)
DX: K35.80 Unspecified acute appendicitis (principal); I10 Essential (primary) hypertension; E78.5 Hyperlipidemia, unspecified; E11.9 Type 2 diabetes mellitus without complications; E66.8 Other obesity; Z68.33 Body mass index [BMI] 33.0-33.9, adult; Z88.0 Allergy status to penicillin
CPT/HCPCS: 36415; 74177-TC; 80053; 81003; 82962; 83690; 85025; 85610; 86850; 86900; 86901; 87086; 88304-TC; 93005; 93010; 94010; 94760; 99284-25; J0131; J7030

== ENCOUNTER 2019-05-03 05:55 | Day surgery (SDC) | payer OTHER ==
[2019-05-01 06:44] VITALS: BMI 31.4
[2019-05-03 06:20] VITALS: TEMP 97.6
[2019-05-03] MEDS ORDERED: BUPIVACAINE HCL/PF 0.25% (2.5MG/ML) 10 ML VIAL ONE (07:25)
[2019-05-03] MEDS ORDERED: methylPREDNISolone ACET (DEPO) 40 MG/1 ML VIAL ONE (07:25)
[2019-05-03] MEDS ORDERED: PROPOFOL 20 ML ONE ×2 (07:57)
[2019-05-03] MEDS ORDERED: methylPREDNISolone ACET (DEPO) 80 MG/1 ML VIAL IJ ONE (08:13)
[2019-05-03] MEDS ORDERED: BUPIVACAINE HCL/PF 0.25% (2.5MG/ML) 10 ML VIAL IJ ONE (08:13)
[2019-05-03] MEDS ORDERED: LIDOCAINE HCL 1% PRESERVATIVE FREE - 30ML VIAL IJ ONE (08:13)
--- NOTE | 2019-05-03 09:06 | OP ---
DATE OF OPERATION: 05/03/2019 PREOPERATIVE DIAGNOSIS: L4-5 disk herniation with lower back pain and right lower extremity radiculopathy. POSTOPERATIVE DIAGNOSIS: L4-5 disk herniation with lower back pain and right lower extremity radiculopathy. ATTENDING SURGEON: Jonah Alonso MD PROCEDURE: 1. Right L4-5 epidural steroid injection. 2. Intraoperative fluoroscopy. ANESTHESIA: Local with IV sedation. ANESTHESIOLOGIST: JUNG Gutierrez INDICATION: Patient is a 63-year-old male with past history of lumbar radiculopathy. Because of the intractable symptoms and failure of conservative treatment he is here for the first epidural steroid injection. The risks of the procedure include but are not limited to bleeding, infection, spinal headache and neurological injury. The patient understands the indication for the procedure, procedure in detail, risks and benefits and alternatives for his lumbar condition and wished to proceed. No guarantees were given for a favorable outcome. PROCEDURE IN DETAIL: After patient was taken to the operating room he was placed in a prone position with a pillow under his hips. Lumbar region was cleaned with alcohol and prepped with Betadine. Skin wheal raised with 5 mL of 1% Xylocaine. A 22-gauge spinal needle was inserted under AP and lateral fluoroscopic guidance from a right-sided approach to the L4-5 level. Needle bevel was turned cephalad and laterally. There was no CSF or blood backflow at any point in time. Depo-Medrol 80 mg and 1 mL of 0.25% Marcaine were injected. The needle was withdrawn. A sterile bandage was applied. The patient tolerated the procedure well, was turned back to the supine position, moving bilateral lower extremities well. He did not complain of a headache. JONAH ALONSO M.D. [id number]
[2019-05-03 10:35] VITALS: BP 149/90; PULSE 65
== END 2019-05-03 09:40 | disposition home or self-care (01) ==
LOC: JASU-SURG 05:55
PROVIDERS: ATTEND Neurological Surgery
PROC: 3E0R3BZ Introduction of Anesthetic Agent into Spinal Canal, Percutaneous Approach (ICD-10-PCS; 2019-05-03)
PROC: B01BZZZ Fluoroscopy of Spinal Cord (ICD-10-PCS; 2019-05-03)
PROC: 3E0R33Z Introduction of Anti-inflammatory into Spinal Canal, Percutaneous Approach (ICD-10-PCS; principal; 2019-05-03 07:30)
DX: M51.16 Intervertebral disc disorders with radiculopathy, lumbar region (principal); M54.5 Low back pain
CPT/HCPCS: 76000-TC-FY

== ENCOUNTER 2022-12-16 04:23 | Day surgery (SDC) | payer BC ==
[2022-12-14 09:19] VITALS: BMI 32.1
[2022-12-16 08:46] VITALS: TEMP 97.5
[2022-12-16 09:24] VITALS: BP 156/63; PULSE 57; RESP 19
== END 2022-12-16 09:37 | disposition home or self-care (01) ==
LOC: JASU-ENDO 04:23
PROVIDERS: ATTEND Internal Medicine Gastroenterology
PROC: 0DBL8ZX Excision of Transverse Colon, Via Natural or Artificial Opening Endoscopic, Diagnostic (ICD-10-PCS; 2022-12-16)
PROC: 0DBM8ZX Excision of Descending Colon, Via Natural or Artificial Opening Endoscopic, Diagnostic (ICD-10-PCS; principal; 2022-12-16 08:00)
DX: Z12.11 Encounter for screening for malignant neoplasm of colon (principal); D12.3 Benign neoplasm of transverse colon; D12.4 Benign neoplasm of descending colon; K57.30 Diverticulosis of large intestine without perforation or abscess without bleeding; Z86.010 Personal history of colon polyps; Z80.0 Family history of malignant neoplasm of digestive organs
CPT/HCPCS: 82962; 88305-TC

== ENCOUNTER 2023-12-27 18:25 | Inpatient (IN) | payer BC, OTHER ==
[2023-12-27 20:49] LABS: BASO % 1.2 % (0-2.0); EOS % 8.8 % (0-4.5); HEMOGLOBIN 17.5 GM/dL (11.7-16.9); LYMPH % 23.8 % (8-40); MCH 30.6 pg (25.7-33.7); MCHC 34.3 g/dl (32.0-35.9); MEAN CELL VOLUME 89.1 fl (80-96); MEAN PLT VOLUME 8.8 fl (7.5-11.1); MONO % 9.9 % (3.8-10.2); NEUT % 56.3 % (42.8-82.8); PLATELET COUNT 207 10^3/uL (134-434); RBC 5.73 M/mm3 (4.00-5.60); RDW 13.8 % (11.9-15.9); WHITE BLOOD COUNT 5.3 K/mm3 (4.0-10.0)
[2023-12-27 20:54] LABS: INR 1.04 (0.83-1.09); PROTHROMBIN TIME (PATIENT) 12.1 SEC (9.7-13.0)
[2023-12-27 20:57] LABS: ACTIVATED PTT 37.5 SECONDS (25.2-36.5)
[2023-12-27 21:19] LABS: BILIRUBIN,DIRECT 3.5 mg/dL (0.0-0.2)
[2023-12-27 21:21] LABS: BILIRUBIN,TOTAL 4.2 mg/dL (0.2-1)
[2023-12-28] MEDS: INSULIN ASPART SLIDING SCALE (NOVOLOG) 1 VIAL SQ SCH (01:23)
[2023-12-28 06:18] VITALS: BMI 32.5
[2023-12-28 06:52] LABS: BASO % 0.9 % (0-2.0); EOS % 7.6 % (0-4.5); HEMATOCRIT 48.3 % (35.4-49); HEMOGLOBIN 16.3 GM/dL (11.7-16.9); LYMPH % 20.9 % (8-40); MCH 30.2 pg (25.7-33.7); MCHC 33.7 g/dl (32.0-35.9); MEAN CELL VOLUME 89.4 fl (80-96); MEAN PLT VOLUME 9.2 fl (7.5-11.1); MONO % 9.1 % (3.8-10.2); NEUT % 61.5 % (42.8-82.8); PLATELET COUNT 189 10^3/uL (134-434); RDW 13.6 % (11.9-15.9); WHITE BLOOD COUNT 6.3 K/mm3 (4.0-10.0)
[2023-12-28 07:02] LABS: POTASSIUM 4.1 mmol/L (3.5-5.1)
[2023-12-28 07:08] LABS: CALCIUM 8.7 mg/dL (8.5-10.1)
[2023-12-28 07:09] LABS: BLOOD UREA NITROGEN 12.1 mg/dL (7-18)
[2023-12-28 07:10] LABS: ALBUMIN 3.2 g/dl (3.4-5.0); MAGNESIUM 1.8 mg/dL (1.8-2.4)
[2023-12-28 07:12] LABS: CREATININE 0.9 mg/dL (0.55-1.3); PHOSPHOROUS 2.3 mg/dL (2.5-4.9)
[2023-12-28 07:14] LABS: TOT PROT 6.5 g/dl (6.4-8.2)
[2023-12-28 07:15] LABS: BILIRUBIN,TOTAL 3.7 mg/dL (0.2-1)
[2023-12-28] MEDS: LOSARTAN POTASSIUM 25 MG TABLET PO SCH (09:57)
[2023-12-28] MEDS: LACTATED RINGERS SOLUTION 1,000 ML/1,000 ML INFUS.BAG IV SCH ×2 (11:49→18:34)
[2023-12-28] MEDS: INDOMETHACIN 50 MG RECTAL SUPPOSITORY PR ONE (16:05)
[2023-12-28] MEDS: IOHEXOL 300 MG/ML INFUS..BTL IV ONE (16:53)
[2023-12-28] MEDS ORDERED: ROSUVASTATIN CA 5 MG TABLET PO SCH (22:00)
[2023-12-29 06:40] LABS: HEMATOCRIT 47.2 % (35.4-49); HEMOGLOBIN 15.8 GM/dL (11.7-16.9); MCHC 33.4 g/dl (32.0-35.9); MEAN CELL VOLUME 89.8 fl (80-96); PLATELET COUNT 180 10^3/uL (134-434); RBC 5.26 M/mm3 (4.00-5.60); RDW 13.5 % (11.9-15.9); WHITE BLOOD COUNT 5.9 K/mm3 (4.0-10.0)
[2023-12-29 07:08] LABS: INR 1.1 (0.83-1.09); PROTHROMBIN TIME (PATIENT) 12.8 SEC (9.7-13.0)
[2023-12-29 07:12] LABS: POTASSIUM 4.1 mmol/L (3.5-5.1)
[2023-12-29 07:20] LABS: CALCIUM 9.3 mg/dL (8.5-10.1)
[2023-12-29 07:21] LABS: MAGNESIUM 2.1 mg/dL (1.8-2.4)
[2023-12-29 07:23] LABS: BLOOD UREA NITROGEN 14.1 mg/dL (7-18); CREATININE 0.8 mg/dL (0.55-1.3)
[2023-12-29 07:25] LABS: TOT PROT 6.2 g/dl (6.4-8.2)
[2023-12-29 07:46] LABS: BILIRUBIN,TOTAL 1.5 mg/dL (0.2-1)
[2023-12-29] MEDS ORDERED: INSULIN (NOVOLOG) ASPART 100 UNITS/ML 10ML VIAL ONE (21:21)
[2023-12-30] MEDS: LACTATED RINGERS SOLUTION 1,000 ML/1,000 ML INFUS.BAG IV SCH
[2023-12-30 07:52] LABS: HEMATOCRIT 48.7 % (35.4-49); MCH 29.6 pg (25.7-33.7); MCHC 32.8 g/dl (32.0-35.9); MEAN CELL VOLUME 90.2 fl (80-96); MEAN PLT VOLUME 9.2 fl (7.5-11.1); PLATELET COUNT 198 10^3/uL (134-434); RDW 13.4 % (11.9-15.9); WHITE BLOOD COUNT 6.3 K/mm3 (4.0-10.0)
[2023-12-30 08:07] LABS: POTASSIUM 4.3 mmol/L (3.5-5.1)
[2023-12-30 08:10] LABS: ALBUMIN 3.1 g/dl (3.4-5.0); CALCIUM 9.3 mg/dL (8.5-10.1); MAGNESIUM 2.1 mg/dL (1.8-2.4)
[2023-12-30 08:11] LABS: BLOOD UREA NITROGEN 12.8 mg/dL (7-18)
[2023-12-30 08:15] LABS: TOT PROT 6.3 g/dl (6.4-8.2)
[2023-12-30 08:17] LABS: CREATININE 0.9 mg/dL (0.55-1.3)
[2023-12-30 08:19] LABS: INR 1.06 (0.83-1.09); PROTHROMBIN TIME (PATIENT) 12.3 SEC (9.7-13.0)
[2023-12-30] MEDS ORDERED: INDOCYANINE GREEN 25 MG/10 ML VIAL IVPUSH ONE (10:15)
[2023-12-30] MEDS ORDERED: BUPIVACAINE HCL/PF 0.25% (2.5MG/ML) 10 ML VIAL ONE ×2 (11:10→12:06)
[2023-12-30] MEDS: cefOXitin SODIUM 2 GM VIAL (RESTRICTED TO ID) IVPB ONE (11:40)
[2023-12-30] MEDS: INDOCYANINE GREEN 25 MG/10 ML VIAL IVPUSH ONE ×2 (11:55)
[2023-12-30] MEDS: BUPIVACAINE HCL/PF 0.25% (2.5MG/ML) 10 ML VIAL IJ ONE (12:00)
[2023-12-30] MEDS ORDERED: SUGAMMADEX SODIUM 200 MG/2 ML VIAL ONE (13:25)
[2023-12-30] MEDS ORDERED: LACTATED RINGERS SOLUTION 1,000 ML/1,000 ML INFUS.BAG IV SCH (14:43)
[2023-12-30] MEDS ORDERED: ACETAMINOPHEN INJECTION 100 ML IVPB ONE (14:45)
[2023-12-30] MEDS: ACETAMINOPHEN 1000 MG/100 ML BAG IVPB SCH (14:48)
[2023-12-30] MEDS: INSULIN ASPART SLIDING SCALE (NOVOLOG) 1 VIAL SQ SCH (17:29)
[2023-12-31 05:28] VITALS: TEMP 98.2
[2023-12-31 07:41] LABS: HEMATOCRIT 45.7 % (35.4-49); HEMOGLOBIN 15.5 GM/dL (11.7-16.9); MCH 30.8 pg (25.7-33.7); MCHC 33.8 g/dl (32.0-35.9); MEAN CELL VOLUME 90.9 fl (80-96); PLATELET COUNT 207 10^3/uL (134-434); RBC 5.03 M/mm3 (4.00-5.60); RDW 13.7 % (11.9-15.9); WHITE BLOOD COUNT 9.8 K/mm3 (4.0-10.0)
[2023-12-31 07:57] LABS: POTASSIUM 4.7 mmol/L (3.5-5.1)
[2023-12-31 08:08] LABS: CALCIUM 9.2 mg/dL (8.5-10.1)
[2023-12-31 08:09] LABS: ALBUMIN 3.1 g/dl (3.4-5.0); BLOOD UREA NITROGEN 15.8 mg/dL (7-18)
[2023-12-31 08:14] LABS: BILIRUBIN,TOTAL 0.7 mg/dL (0.2-1); TOT PROT 6.1 g/dl (6.4-8.2)
[2023-12-31 09:04] VITALS: BP 168/78; PULSE 84; RESP 20
[2023-12-31] MEDS: LOSARTAN POTASSIUM 50 MG TABLET PO SCH (09:07)
== END 2023-12-31 10:54 | disposition home or self-care (01) | DRG 419 ==
LOC: JER 18:25 → JERBED 19:26 → J7W 12-28 01:14
PROVIDERS: ADMIT Internal Medicine; ATTEND Internal Medicine
PROC: 0DJ08ZZ Inspection of Upper Intestinal Tract, Via Natural or Artificial Opening Endoscopic (ICD-10-PCS; 2023-12-28)
PROC: 8E0W4CZ Robotic Assisted Procedure of Trunk Region, Percutaneous Endoscopic Approach (ICD-10-PCS; 2023-12-30)
PROC: 0FT44ZZ Resection of Gallbladder, Percutaneous Endoscopic Approach (ICD-10-PCS; principal; 2023-12-30 10:30)
DX: K80.12 Calculus of gallbladder with acute and chronic cholecystitis without obstruction (principal); I10 Essential (primary) hypertension; E78.5 Hyperlipidemia, unspecified; K21.9 Gastro-esophageal reflux disease without esophagitis; R79.89 Other specified abnormal findings of blood chemistry
CPT/HCPCS: 36415; 74181-TC; 74330-TC; 80053; 80061; 82247; 82248; 82962; 83036; 83735; 84100; 84439; 84443; 84484; 85025; 85027; 85610; 85730; 86708; 86803; 86850; 86900; 86901; 87040; 87340; 87517; 88304-TC; 93005; 93010; 93306-TC; 94760; 99285-25; J0131